=== PATIENT | male | born 1955 | race Two or more races ===

== ENCOUNTER 2019-07-20 09:45 | Day surgery (SDC) | payer OTHER | END 2019-07-20 14:15 | disposition home or self-care (01) | LOC: AMB-ENDOS 09:45 | DX: C20 Malignant neoplasm of rectum (principal) ==

== ENCOUNTER 2019-12-02 05:30 | Day surgery (SDC) | payer OTHER ==
[~2019-12-02 05:30] MED LIST: ATORVASTATIN CA40 MG PO; COZAAR50 MG PO; HORIZANT300 MG PO; KAPSPARGO SPRIN25 MG PO; PLAVIX75 MG PO; XAR PO; XARELT
[2019-12-02] MEDS ORDERED: ULTRACET PO (09:15)
== END 2019-12-02 11:10 | disposition home or self-care (01) ==
LOC: CIR.AMB 05:30
DX: C20 Malignant neoplasm of rectum (principal)
CPT/HCPCS: 36561; C1751

== ENCOUNTER 2020-10-24 05:52 | Day surgery (SDC) | payer OTHER ==
[~2020-10-24 05:52] MED LIST changes: +ULTRACET PO
== END 2020-10-24 10:00 | disposition home or self-care (01) ==
LOC: AMB-ENDOS 05:52
PROVIDERS: ATTEND Surgery
DX: K62.89 Other specified diseases of anus and rectum (principal); Z20.822 Contact with and (suspected) exposure to COVID-19

== ENCOUNTER 2021-01-01 06:00 | Day surgery (SDC) | payer OTHER ==
[2021-01-01] MEDS ORDERED: ULTRACET PO (08:43)
== END 2021-01-01 11:00 | disposition home or self-care (01) ==
LOC: CIR.AMB 06:00
PROVIDERS: ATTEND Surgery
DX: C20 Malignant neoplasm of rectum (principal); Z20.822 Contact with and (suspected) exposure to COVID-19